=== PATIENT | male | born 1990 | race African-American/Black ===

== ENCOUNTER 2020-07-06 09:06 | Emergency (ER) | payer OTHER, SELFPAY ==
[2020-07-06 09:15] VITALS: BP 136/93; PULSE 68; RESP 17; TEMP 36.3; O2SAT 100
--- NOTE | 2020-07-06 09:19 | PC.NURSE ---
Call for help called at this time.
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
[2020-07-06] MEDS: AZITHROMYCIN 250 MG TABLET 1000 MG PO (11:54)
[2020-07-06] MEDS: EMTRICITABINE-TENOFOVIR 100 MG-150 MG TABLET 2 TAB PO (11:54)
[2020-07-06] MEDS: cefTRIAXone 250 MG VIAL IM (11:54)
[2020-07-06] MEDS: RALTEGRAVIR 400 MG TABLET PO (11:54)
[2020-07-06] MEDS: metroNIDAZOLE 250 MG TABLET 2000 MG PO (11:54)
[2020-07-06 12:06] VITALS: BP 123/78; PULSE 63; RESP 17; O2SAT 100
[2020-07-06 12:09] LABS: HIV 1/2 Ab P24 Ag Result Negative (Negative)
== END 2020-07-06 12:08 | disposition home or self-care (01) ==
PROVIDERS: Emergency Provider Emergency Medicine; PCP Family Medicine Adolescent Medicine
DX: T76.21XA Adult sexual abuse, suspected, initial encounter (principal)
CPT/HCPCS: 36415; 86703; 96372; 99285; A9270; G0432; J0696

== ENCOUNTER 2022-07-27 14:33 | Emergency (ER) | payer SELFPAY ==
[2022-07-27 14:41] VITALS: BP 124/79; PULSE 75; RESP 16; TEMP 36.9; O2SAT 100
--- NOTE | 2022-07-27 14:45 | ED.NAVMDI ---
HPI - Nausea/Vomiting/Diarrhea General Chief complaint: Nausea/Vomiting/Diarrhea Stated complaint: vomiting and diarrhea every morning Time Seen by Provider: 07/27/22 14:47 Source: patient and RN notes reviewed Mode of arrival: ambulatory Limitations: no limitations History of Present Illness HPI Narrative: 31-year-old male presented for complaint of diarrhea since yesterday. He endorses 5 episodes yesterday and 3 episodes today. He denies hematochezia or melena. He endorses chronic vomiting every morning for several years. He is scheduled with his PCP on 08/04/2022, and plans to discuss this. He currently denies abdominal pain, nausea, hematemesis, fevers or chills. He smokes marijuana daily, he states he is cut down on his alcohol intake. Related Data Allergies Allergy/AdvReac Type Severity Reaction Status Date / Time No Known Allergies Allergy Unknown Verified 07/27/22 14:48 Review of Systems Review of Systems: CONSTITUTIONAL: Denies body aches, fever, chills ENT: Denies rhinorrhea, congestion CARDIOVASCULAR: Denies chest pain, palpitations, or edema. RESPIRATORY: Denies cough or dyspnea. GASTROINTESTINAL: Endorses nausea, vomiting, diarrhea. Denies abdominal pain hematochezia, melena, hematemesis GENITOURINARY: Denies dysuria, hematuria, or CVA tenderness. SKIN: Denies rash, itching, or wounds. MUSCULOSKELETAL: Denies back pain, joint pain, or myalgia. NEUROLOGIC: Denies headache, numbness, tingling, or weakness. All systems reviewed & are unremarkable except as noted in HPI and below PMFSH Past Medical History Medical History Healthy adult male Surgical History Surgical History No history of previous surgery Social History Social History Alcohol intake: current Substance use type: marijuana Gender identity (if verbalized by the patient): Male Comments At time of signature, I have reviewed and agree with nursing past medical, surgical, social and family history unless otherwise noted. Please see nursing chart for further information. There is no relevant family history pertinent to the presenting complaint Exam Narrative: GENERAL: Well-appearing, and in no acute distress. EYES: EOMI. Conjunctivae normal. ENT: Mucous membranes pink and moist. CHEST: Clear to auscultation. HEART: Regular rate and rhythm. No murmur appreciated. Normal peripheral pulses. ABDOMEN: abd soft, nondistended, normal active bowel sounds. Tender to epigastric area. SKIN: Warm, dry, no rash. Capillary refill normal. Normal skin turgor. NEURO: Alert and oriented x3. PSYCH: Normal affect. Course Course Emergency Course: Patient is aware of diagnosis, understands and agrees to treatment plan. Anticipatory guidance given. Patient agrees to follow-up as directed and is aware of reasons to seek care at the emergency department. Portions of this record may have been created with voice recognition software Level of Care: Express Care Visit Vital Signs Vital signs: Vital Signs Temperature 98.4 F 07/27/22 14:41 Pulse Rate 75 07/27/22 14:41 Respiratory Rate 16 07/27/22 14:41 Blood Pressure 124/79 07/27/22 14:41 Pulse Oximetry 100 07/27/22 14:41 Oxygen Delivery Room Air 07/27/22 14:41 Temperature 98.4 F 07/27/22 14:41 Pulse Rate 75 07/27/22 14:41 Respiratory Rate 16 07/27/22 14:41 Blood Pressure 124/79 07/27/22 14:41 Pulse Oximetry 100 07/27/22 14:41 Oxygen Delivery Room Air 07/27/22 14:41 MDM - Nausea/Vomiting/Diarrhea MDM Narrative Medical decision making narrative: Patient is scheduled with PCP in one week to discuss chronic vomiting. He is well appearing. Advised supportive measures and signs/symptoms to go to the ER. Pt is appropriate for outpt treatment and f/u. Differential Diagnosis Differ
== END 2022-07-27 15:12 | disposition home or self-care (01) ==
PROVIDERS: Emergency Provider Nurse Practitioner Family; PCP Family Medicine Adolescent Medicine
DX: R11.10 Vomiting, unspecified (principal); R19.7 Diarrhea, unspecified
CPT/HCPCS: 99213; G0463

== ENCOUNTER 2022-08-30 13:21 | Emergency (ER) | payer SELFPAY ==
[2022-08-30 13:33] VITALS: BP 143/79; PULSE 85; RESP 20; TEMP 37.2; O2SAT 99
--- NOTE | 2022-08-30 13:56 | ECG_ITS ---
Measurements Intervals [place] Rate: 64 P: 50 [place]: 127 QRS: 64 QRSD: 93 T: 49 QT: 392 QTc: 407 Interpretive Statements SINUS RHYTHM BASELINE ARTIFACT- V2 NORMAL ECG NO PREVIOUS ECG AVAILABLE FOR COMPARISON Electronically Signed On 08-30-2022 14:16:10 TAPPET ADJUSTER by Edmundo Chang D.O.
[2022-08-30 14:19] LABS: Basophils Percent Auto 0.2 % (0.2-1.2); Eosinophils Percent Auto 0.1 % (0-4.4); Hematocrit 45.3 % (42.0-52.0); Hemoglobin 15.4 g/dL (14.0-18.0); Immature Granulocyte Absolute 0.04 K/mm3 (0.00-0.031); Immature Granulocyte Percent A 0.3 % (0-0.5); Lymphocytes Absolute Auto 1.71 K/mm3 (0.9-3.2); Lymphocytes Percent Auto 13.1 % (18.3-44.2); Mean Corpuscular Hemoglobin 31.4 pg (26-34); Mean Corpuscular Volume 92.4 fl (80-100); Mean Platelet Volume 9.2 fl (7.4-10.4); Monocytes Absolute Auto 1.2 K/mm3 (0.1-0.6); Monocytes Percent Auto 9.5 % (2.6-8.5); Neutrophils Percent Auto 76.8 % (45.5-73.1); Platelet Count Result 261 k/mm3 (150-375); Red Cell Distribution Width 13.3 % (11.5-14.5)
[2022-08-30 14:25] LABS: Appearance Urine Clear (Clear); Bilirubin Urine Negative (Negative); Blood Urine Negative (Negative); Color Urine Yellow (Yellow); Glucose Urine UA Negative (Negative); Ketones Urine Negative (Negative); Leukocyte Esterase Ur Negative LEU/UL (Negative); Nitrate Urine Negative (Negative); Protein Urine Negative (Negative); Specific Grav Ur <= 1.005 (1.001-1.035); Urobilinogen Urine 0.2 mg/dL (<2.0); pH Urine 6.5 (5.0-9.0)
[2022-08-30 14:30] LABS: Alanine Aminotransferase 26 U/L (6-50); Albumin Level 5.1 g/dL (3.5-5.1); Alkaline Phosphatase 96 U/L (38-126); Anion Gap 16 mmol/L (8-16); Aspartate Amino Transferase 45 U/L (17-59); Bilirubin,Total 0.7 mg/dL (0.2-1.3); Blood Urea Nitrogen 6 mg/dL (9-20); Calcium 9.9 mg/dL (8.4-10.2); Carbon Dioxide 25 mmol/L (22-30); Chloride 102 mmol/L (98-107); Estimated CRCL calculation 122 ml/min; Estimated Glomerular Filt Rate > 60; Glucose 119 mg/dL (65-110); Potassium 3.4 mmol/L (3.4-5.0); Sodium 143 mmol/L (137-145)
[2022-08-30 14:31] LABS: Acetaminophen < 10 ug/mL (10-30); Ethanol < 10 mg/dL (<10); INR 1.1; Mucus Urine Rare /lpf; Prothrombin Time 13.3 Seconds (11.1-14.7); RBC Urine 0-2 /hpf (0-2); Salicylate < 1.0 mg/dL (2-20); WBC Urine 0-3 /hpf
[2022-08-30 14:40] LABS: Amphetamine Screen Urine Positive (Negative); Barbiturate Screen Urine Negative (Negative); Benzodiazepines Screen Urine Negative (Negative); Cannabinoid Screen Urine Positive (Negative); Cocaine Screen Urine Negative (Negative); Methadone Screen Urine Negative (Negative); Opiate Screen Urine Negative (Negative); Phencyclidine Screen Urine Negative (Negative)
[2022-08-30 14:48] LABS: Add Urine Microscopic? YES
[2022-08-30 14:54] LABS: SARS-CoV-2 RNA PCR Negative
[2022-08-30] MEDS: PROCHLORPERAZINE EDISYLATE 10 MG/2 ML VIAL 5 MG IM (14:56)
--- NOTE | 2022-08-30 15:55 | PC.NURSE ---
patient was told that he was positive for meth. he became very upset and started crying. denies willingly taking anything. at this time, he reports numbess to his left arm/hand. SO at bedside. aware of patient's complaint. Staff sitter at bedside.
--- NOTE | 2022-08-30 16:49 | ED.GENADULT ---
HPI - General Adult General Chief complaint: Overdose <Gideon Osman MD - Last Filed: 08/30/22 16:54> Stated complaint: possible overdose <Gideon Osman MD - Last Filed: 08/30/22 16:54> Time Seen by Provider: 08/30/22 13:56 <Gideon Osman MD - Last Filed: 08/30/22 16:54> Source: patient <Gideon Osman MD - Last Filed: 08/30/22 16:54> Mode of arrival: ambulatory <Gideon Osman MD - Last Filed: 08/30/22 16:54> Limitations: no limitations <Gideon Osman MD - Last Filed: 08/30/22 16:54> History of Present Illness HPI narrative: 31-year-old with no major medical problems here with complaints of feeling depressed and suicidal. Patient states that he smoked weed and he thinks it was laced with some unknown chemical. He denies any alcohol use. He states that he is not under any kind of stress at this time. He has not been admitted to any psychiatric hospitals in the past. <Gideon Osman MD - Last Filed: 08/30/22 16:54> Onset (ago): day(s) (1) <Gideon Osman MD - Last Filed: 08/30/22 16:54> Associated symptoms: denies other symptoms <Gideon Osman MD - Last Filed: 08/30/22 16:54> Related Data Home medications: Home Medications Medication Instructions Recorded Confirmed No Home Medications 08/30/22 08/30/22 <Gideon Osman MD - Last Filed: 08/30/22 16:54> Allergies/adverse reactions: Allergies Allergy/AdvReac Type Severity Reaction Status Date / Time No Known Allergies Allergy Verified 08/30/22 14:00 <Gideon Osman MD - Last Filed: 08/30/22 16:54> Review of Systems Review of Systems: All systems reviewed & are unremarkable except as noted in HPI and below <Gideon Osman MD - Last Filed: 08/30/22 16:54> Constitutional: Constitutional: Reports no additional constitutional complaints <MD Pamela Loza Last Filed: 08/30/22 16:54> Eyes: Eyes: Reports no additional eye complaints <Gideon Osman MD - Last Filed: 08/30/22 16:54> ENT: Reports system reviewed and no additional complaints, except as documented <Gideon Osman MD - Last Filed: 08/30/22 16:54> Cardiovascular: Cardiovascular: Reports no additional cardiovascular complaints <Gideon Osman MD - Last Filed: 08/30/22 16:54> Respiratory: Respiratory: Reports no additional respiratory complaints <Gideon Osman MD - Last Filed: 08/30/22 16:54> Gastrointestinal: Gastrointestinal: Reports no additional gastrointestinal complaints <Gideon Osman MD - Last Filed: 08/30/22 16:54> Musculoskeletal: Musculoskeletal: Reports no additional musculoskeletal complaints <Gideon Osman MD - Last Filed: 08/30/22 16:54> Integumentary/Breasts: Skin/Breast: Reports system reviewed and no additional complaints, except as docu <Gideon Osman MD - Last Filed: 08/30/22 16:54> Neurologic: Reports system reviewed and no additional complaints, except as documented <Gideon Osman MD - Last Filed: 08/30/22 16:54> Psychiatric: Psychiatric: Reports no additional psychiatric complaints <Gideon Osman MD - Last Filed: 08/30/22 16:54> PMFSH Social History Social History: Social History Substance use type: marijuana <Gideon Osman MD - Last Filed: 08/30/22 16:54> Exam Narrative: GENERAL: Well-appearing, well-nourished, and in no acute distress. HEAD: Normocephalic, atraumatic. EYES: PERRLA and EOMI. NECK: Supple. CHEST: Clear to auscultation. No respiratory distress. HEART: Regular rate and rhythm. No murmur heard. Normal peripheral pulses. ABDOMEN: Soft, nontender, nondistended, normal active bowel sounds. EXTREMITIES: Normal range of motion. No edema. SKIN: Warm, dry, no rash. NEURO: No focal deficits. Alert and oriented x3. PSYCH: Normal mood and affect. <Gideon Osman MD - Last Filed: 08/30/22 16:54> Course Course Emergency Course: Patient comfortably resting on the bed in no disc
[2022-08-30] MEDS: ACETAMINOPHEN 500 MG TABLET 1000 MG PO (18:34)
[2022-08-30] MEDS: LORazepam (*CRX) 1 MG TABLET PO (20:21)
[2022-08-30] MEDS: ONDANSETRON HCL ODT 4 MG TABLET PO (21:28)
[2022-08-31] MEDS: QUEtiapine FUMARATE 25 MG TABLET 50 MG PO (05:47)
[2022-08-31 07:07] VITALS: RESP 20
[2022-08-31 09:00] VITALS: BP 140/68; PULSE 68; RESP 16; O2SAT 98
--- NOTE | 2022-08-31 11:28 | PC.NURSE ---
[id number] Faxed file to intake at [facility], [place] and [place].[employer]ava US/tech
[2022-08-31 15:07] VITALS: BP 125/68; PULSE 68; RESP 14; TEMP 36.6; O2SAT 98
[2022-08-31] MEDS: LORazepam (*CRX) 1 MG TABLET 2 MG PO (15:11)
== END 2022-08-31 19:00 ==
PROVIDERS: Family Medicine; Emergency Provider Emergency Medicine
DX: R45.851 Suicidal ideations (principal); F19.10 Other psychoactive substance abuse, uncomplicated; Z20.822 Contact with and (suspected) exposure to COVID-19
CPT/HCPCS: 36415; 80053; 80307; 81001; 84443; 85025; 85610; 93005; 96372; 99285; A9270; J0780; U0003; U0005

== ENCOUNTER 2023-05-26 14:54 | Emergency (ER) | payer OTHER, SELFPAY ==
--- NOTE | ~2023-05-26 | XR_ITS ---
EXAMINATION: XR lumbar spine 2-3V DATE: 05/26/2023 18:10 INDICATION: Chronic back pain TECHNIQUE: Anteroposterior and lateral views of the lumbar spine, and cone-down lateral view of the l umbosacral junction were obtained. COMPARISON: 02/08/2013 FINDINGS: There are 3 mm of retrolisthesis of L5 on S1. There is no fracture. The vertebral body heig hts and intervertebral disc spaces are normal. There is moderate facet joint osteoarthritis at L5-S1. IMPRESSION: 1. Mild lumbar spondylosis without acute findings. Reviewed, dictated and finalized at location F.
[2023-05-26 15:28] VITALS: BP 139/69; PULSE 66; RESP 14; TEMP 36.6; O2SAT 100
[2023-05-26 16:14] VITALS: BP 116/80; PULSE 70; RESP 16; TEMP 37; O2SAT 100
[2023-05-26] MEDS: KETOROLAC (*BKC) 60 MG/2 ML VIAL IM (17:26)
[2023-05-26 17:39] LABS: Appearance Urine Clear (Clear); Bilirubin Urine Negative (Negative); Blood Urine Negative (Negative); Color Urine Yellow (Yellow); Glucose Urine UA Negative (Negative); Ketones Urine Negative (Negative); Leukocyte Esterase Ur Negative LEU/UL (Negative); Nitrate Urine Negative (Negative); Protein Urine Negative (Negative); Specific Grav Ur 1.006 (1.001-1.035); Urobilinogen Urine 0.2 mg/dL (<2.0); pH Urine 6.5 (5.0-9.0)
--- NOTE | 2023-05-26 17:46 | ED.BACK ---
HPI - Back Pain/Injury General Chief Complaint: Back Pain/Injury Stated Complaint: back pain Time Seen by Provider: 05/26/23 16:53 Source: patient and RN notes reviewed Mode of arrival: ambulatory Limitations: no limitations History of Present Illness HPI Narrative: THis is a 32 year old male who presents for evaluation of back pain. Patient states he has been dealing with back pain intermittently for years. He states this bout of pain for 2 weeks. His pain is located right lower back that is worse with movement. He reports has some pain in his right groin as well. He has not been taking anything for his pain. He denies associated fever, chills, nausea, vomiting or testicular pain. He denies dysuria. He went to urgent care for evaluation and he was sent to ER Related Data Allergies Allergy/AdvReac Type Severity Reaction Status Date / Time No Known Allergies Allergy Verified 05/26/23 17:26 Review of Systems Constitutional: Constitutional: Denies weakness Cardiovascular: Cardiovascular: Denies syncope, Denies rapid heart rate, Denies irregular heart rhythm, Denies leg edema and Denies dyspnea Respiratory: Respiratory: Denies chest congestion, Denies hemoptysis, Denies excessive phlegm production and Denies dyspnea Gastrointestinal: Gastrointestinal: Denies abdominal pain, Denies hematochezia, Denies diarrhea and Denies vomiting Genitourinary: Genitourinary: Denies hematuria, Denies dysuria, Denies penile discharge and Denies testicular pain Musculoskeletal: Musculoskeletal: Reports back pain, Denies joint swelling, Denies loss of height and Denies muscle weakness Neurologic: Denies syncope, Denies focal weakness and Denies weakness PMFSH Past Medical History Medical History Healthy adult male Surgical History Surgical History No history of previous surgery Social History Social History Smoking status: Former smoker Tobacco type: e-cigarettes/vaping Alcohol intake: current Substance use: current Substance use type: marijuana Living arrangements: with family Gender identity (if verbalized by the patient): Male Spiritual care concerns: No Exam Const: General: no acute distress and alert Nutritional Appearance: well nourished Orientation/consciousness: patient oriented x3 HENMT: Throat: posterior oropharynx normal and uvula midline Eyes: EOM: EOMs intact bilaterally Chest: Chest palpation & inspection: normal inspection of the chest Resp: Effort & Inspection: normal respiratory effort Auscultation: clear to auscultation bilaterally Cardio: Rate: regular rate Rhythm: regular rhythm Heart sounds: no murmurs GI: GI Palp: Yes Soft to palpation, No Tenderness to palpation present (GI), No Guarding due to palpation present (GI) and No Rigid due to palpation Auscultation: normal bowel sounds Back/Spine/Pelvis: Back: no CVA tenderness Cervical Spine: cervical ROM normal Thoracic/Lumbar Spine: paraspinal muscle tenderness on the right in the lower lumbar Skin: General skin exam: normal color Neuro: General: patient oriented x3, moves all extremities and CN's II-XI intact bilaterally Psych: Mental Status: mental status grossly normal Affect: normal affect Attitude: cooperative Course Reevaluation(s) Reevaluation #1: I discussed with patient xray results and UA is unremarkable. I stressed to patient that he will need to follow up with PCP for continued evaluation of his pain. No leg weakness, numbness tingling, saddle anesthesia. unlikely kidney stone. Date: 05/26/23 Time: 18:42 Vital Signs Vital signs: Vital Signs Temperature 97.8 F 05/26/23 15:28 Pulse Rate 66 05/26/23 15:28 Respiratory Rate 14 05/26/23 15:28 Blood Pressure 139/69 05/26/23 15:28 Pulse Oximetry 100 05/26/23 15:28 Oxygen Delivery
[2023-05-26 17:53] LABS: Add Urine Microscopic? NO
== END 2023-05-26 18:55 | disposition home or self-care (01) ==
PROVIDERS: Emergency Provider General Practice; PCP Family Medicine Adolescent Medicine
DX: M54.50 Low back pain, unspecified (principal); F17.290 Nicotine dependence, other tobacco product, uncomplicated
CPT/HCPCS: 72100; 81003; 96372; 99283; J1885

== ENCOUNTER 2023-09-19 21:28 | Emergency (ER) | payer OTHER, SELFPAY ==
--- NOTE | ~2023-09-19 | XR_ITS ---
Lumbosacral Spine: AP and lateral views Clinical History: Pain Findings: The normal lordotic curve is maintained. The vertebral bodies and posterior elements are i ntact. The intervertebral disc spaces are preserved. The sacroiliac joints are normally outlined. Impression: No significant abnormality. Reviewed, dictated and finalized at [facility]. M SHOVEL ENGINEER Impression: No significant abnormality.
--- NOTE | ~2023-09-19 | XR_ITS ---
Thoracic spine: Clinical Indication: Back pain AP and lateral views were performed. No fracture is seen. There is normal alignment of the vertebrae. The intervertebral disc spaces appe ar normal. Paravertebral soft tissues appear normal. Impression: No significant abnormalities noted. Reviewed, dictated and finalized at [place] [facility]. ED FRAMES ASSEMBLER Impression: No significant abnormalities noted.
--- NOTE | ~2023-09-19 | CT_ITS ---
Non-contrast Head CT History: Head injury Technique: Axial non-contrast imaging of the brain was performed. Dose reduction technique was used on this scan by utilizing automated exposure control and iterative reconstruction technique. The dose -length product (DLP) was 605.33 mGy-cm. Findings: There is no evidence of intracranial hemorrhage, mass lesion, or acute infarct. There is a n area chronic encephalomalacia in the right frontal lobe. The ventricles and subarachnoid spaces are normal in size. The calvarium appears normal. The visualized paranasal sinuses and mastoid air pedro ls are clear. Impression: No acute abnormality. Area of chronic encephalomalacia in the right frontal lobe. Correlate with any relevant clinical hist ory. Reviewed, dictated and finalized at [facility]. NT SERVICES ADMINISTRATOR Impression: No acute abnormality. Area of chronic encephalomalacia in the right frontal lobe. Correlate with any relevant clinical history.
--- NOTE | ~2023-09-19 | CT_ITS ---
Noncontrast CT scan of the cervical spine Technique: Multiple contiguous axial [address] images of the cervical spine were obtained and rec onstructed in 2D sagittal and coronal planes on the acquisition scanner. Dose reduction technique was used on this scan by utilizing automated exposure control, adjustment of the mA and/or kV according to patient size. The dose-length product (DLP) was 562.44 mGy-cm. Clinical History: Pain Findings: No fractures or dislocations. Unremarkable visualized bony structures. The intervertebral disc spaces are preserved. No prevertebral soft tissue swelling. Impression: No fracture or subluxation of the cervical spine. Reviewed, dictated and finalized at location . ONAL ASSISTANT Impression: No fracture or subluxation of the cervical spine.
[2023-09-19 21:38] VITALS: BP 143/79; PULSE 90; RESP 20; TEMP 36; O2SAT 99
[2023-09-19 23:57] VITALS: BP 140/69; PULSE 69; RESP 18; O2SAT 100
[2023-09-20 03:40] VITALS: BP 120/82; PULSE 53; RESP 20; O2SAT 100
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
[2023-09-20 07:07] VITALS: BP 126/85; PULSE 62; RESP 20; O2SAT 100
== END 2023-09-20 07:09 | disposition home or self-care (01) ==
PROVIDERS: Emergency Provider Emergency Medicine; PCP Family Medicine Adolescent Medicine
DX: S16.1XXA Strain of muscle, fascia and tendon at neck level, initial encounter (principal); S39.92XA Unspecified injury of lower back, initial encounter; S29.9XXA Unspecified injury of thorax, initial encounter; Z87.891 Personal history of nicotine dependence; V49.00XA Driver injured in collision with unspecified motor vehicles in nontraffic accident, initial encounter
CPT/HCPCS: 70450; 72070; 72100; 72125; 99284

== ENCOUNTER 2024-04-07 13:43 | Observation (INO) | payer OTHER, SELFPAY ==
[2024-04-07] VITALS (13 sets, daily range): BP systolic 106–128; BP diastolic 72–88; PULSE 80–93; RESP 17–18; TEMP 36.4; O2SAT 98–100; BMI 25.4
--- NOTE | ~2024-04-07 | CT_ITS ---
CT brain wo con Ordering provider: Addie Leos PA-C History: 33 years Male with . seizure vs syncope . Comparison: September 20, 2023 Technique: CT of the head without contrast. Radiation reduction technique utilized. DLP is 605.33 mGy FINDINGS: BRAIN PARENCHYMA AND CSF SPACES: Small hyperdense areas seen in the right frontal lobe which may be c alcification unchanged from previous examination. Adjacent encephalomalacia seen.. No midline shift, mass effect or hemorrhage. The brain parenchyma and CSF spaces are otherwise normal. VISUALIZED PARANASAL SINUSES: Well aerated. MASTOIDS: Well aerated. BONES: The bones appear intact. SOFT TISSUES: Visualized nasopharynx is normal. Superficial soft tissues are normal. IMPRESSION: No acute intracranial findings. Area of encephalomalacia in the right frontal lobe with adjacent calcification unchanged from previou s examination. Reviewed, dictated and finalized at location A. IMPRESSION: No acute intracranial findings. Area of encephalomalacia in the right frontal lobe with adjacent calcification unchanged from previous examination.
--- NOTE | ~2024-04-07 | MR_ITS ---
EXAMINATION: MR brain/brain stem wo/w con DATE: 04/08/2024 11:10 INDICATION: Seizure TECHNIQUE: Magnetic resonance imaging (MRI) of the brain and brainstem was performed without and with 14 mL Multihance intravenous contrast. Sequences included sagittal and axial T1-weighted SE, axial d iffusion-weighted FS SE, axial T2*-weighted GRE, axial T2-weighted FLAIR, and axial T2-weighted FSE. Postcontrast axial and coronal T1-weighted SE was obtained. Apparent diffusion coefficient (ADC) maps were created. COMPARISON: CT dated 04/07/2024 and 09/20/2023 FINDINGS: Small region of chronic encephalomalacia in the right frontal lobe. There is somewhat serpiginous pat tern of low signal with susceptibility artifact along the margin of the encephalomalacia which sugges ts the presence of chronic blood products. There are no areas of restricted diffusion to suggest acut e infarction. No abnormal intracranial mass lesion or abnormally enhancing brain lesions. There are n o intraparenchymal signal abnormalities seen on the other pulse sequences. The ventricles are symmetr ic and normal in size. Normal symmetric bilateral hippocampi. No benitez matter heterotopias or other ne uronal migrational abnormalities appreciated. There are no abnormal extra-axial fluid collections. Fl ow voids are seen in the cerebral arteries on the T2-weighted sequences consistent with their expecte d patency. Mild mucosal thickening the bilateral ethmoid sinuses. Visualized orbits and soft tissues are unremarkable. IMPRESSION: 1. Curvilinear susceptibility artifact suggestive of sequela of chronic hemorrhage along the margins of a small region of encephalomalacia likely related to reported history of stroke 2 years prior. No acute intracranial process. Reviewed, dictated and finalized at location A. IMPRESSION: 1. Curvilinear susceptibility artifact suggestive of sequela of chronic hemorrh age along the margins of a small region of encephalomalacia likely related to r eported history of stroke 2 years prior. No acute intracranial process.
--- NOTE | ~2024-04-07 | XR_ITS ---
XR chest 2V Ordering provider: Addie Leos PA-C History: 33 years Male with . syncope . Comparison: May 09, 2018 FINDINGS: MEDIASTINUM: The cardiac silhouette is not enlarged. LUNGS: No infiltrates, effusions or pneumothorax. OTHER: No free air under the diaphragm. IMPRESSION: No acute cardiopulmonary pathology. Reviewed, dictated and finalized at location A.
[2024-04-07 14:02] LABS: Glucose Point of Care 311 mg/dl (65-105)
--- NOTE | 2024-04-07 14:02 | ECG_ITS ---
Test Date: 2024-04-07 14:11:28 Measurements Intervals [place] Rate: 81 P: 52 [place]: 149 QRS: 75 QRSD: 97 T: 50 QT: 356 QTc: 414 Interpretive Statements SINUS RHYTHM No previous ECG available for comparison Electronically Signed On 04-08-2024 12:56:09 CDT by Kaden Pizano M.D.
[2024-04-07 14:53] LABS: Basophils Percent Auto 0.3 % (0.2-1.2); Eosinophils Absolute Auto 0.3 K/mm3 (0-0.3); Eosinophils Percent Auto 3.8 % (0-4.4); Hematocrit 42.7 % (42.0-52.0); Immature Granulocyte Absolute 0.02 K/mm3 (0.00-0.031); Immature Granulocyte Percent A 0.2 % (0-0.5); Lymphocytes Absolute Auto 1.83 K/mm3 (0.9-3.2); Lymphocytes Percent Auto 20.4 % (18.3-44.2); Mean Corpuscular HGB Conc 35.1 g/dl (32-36); Mean Corpuscular Hemoglobin 31.5 pg (26-34); Mean Corpuscular Volume 89.7 fl (80-100); Mean Platelet Volume 9.2 fl (7.4-10.4); Monocytes Absolute Auto 0.9 K/mm3 (0.1-0.6); Monocytes Percent Auto 9.9 % (2.6-8.5); Neutrophils Absolute Auto 5.9 K/mm3 (1.3-6.7); Neutrophils Percent Auto 65.4 % (45.5-73.1); Platelet Count Result 265 k/mm3 (150-375); Red Blood Count 4.76 M/mm3 (4.6-6.20)
[2024-04-07 15:02] LABS: Alanine Aminotransferase 19 U/L (6-50); Albumin Level 4.4 g/dL (3.5-5.1); Alkaline Phosphatase 87 U/L (38-126); Anion Gap 8 mmol/L (4-12); Aspartate Amino Transferase 35 U/L (17-59); Bilirubin,Total 0.6 mg/dL (0.2-1.3); Blood Urea Nitrogen 11 mg/dL (9-20); Calcium 9.3 mg/dL (8.4-10.2); Carbon Dioxide 25 mmol/L (22-30); Chloride 108 mmol/L (98-107); Estimated CRCL calculation 94 ml/min; Estimated Glomerular Filt Rate > 60; Glucose 73 mg/dL (65-110); Magnesium 2.3 mg/dL (1.6-2.3); Potassium 4.2 mmol/L (3.4-5.0); Sodium 141 mmol/L (137-145)
--- NOTE | 2024-04-07 15:02 | ED.SEIZURE ---
HPI - Seizure General Chief Complaint: Syncope <Addie Leos PA-C - Last Filed: 04/07/24 21:07> Stated Complaint: SYNCOPY <Addie Leos PA-C - Last Filed: 04/07/24 21:07> Time Seen by Provider: 04/07/24 14:08 <Addie Leos PA-C - Last Filed: 04/07/24 21:07> Source: patient <OCTAVIANO Dean Last Filed: 04/07/24 21:07> Mode of arrival: EMS <OCTAVIANO Dean Last Filed: 04/07/24 21:07> Limitations: no limitations <OCTAVIANO Dean Last Filed: 04/07/24 21:07> History of Present Illness HPI Narrative: This is a 33-year-old male that presents to the emergency department after a possible seizure today. Reports he was getting ready for a wedding and started to feel his left hand shaking. He then fell to the ground and experienced full body shaking. He thinks this lasted for a couple minutes. He bit his tongue during the episode. Reports history of hemorrhagic stroke 2 years ago. He did experience seizures at that time, but has not had any recently. He is not on any seizure medications at this time. He does not currently have a neurologist. He also reports he has been drinking quite a bit over the last couple of months. His last drink was around 1 this morning. Reports he has had shakes due to withdrawals, but has not ever had a withdrawal seizure. Denies vision changes, vomiting, focal numbness or weakness. <Addie Leos PA-C - Last Filed: 04/07/24 21:07> Seizure History: Yes (08/2022) <OCTAVIANO Dean Last Filed: 04/07/24 21:07> Related Data Home Medications: Home Medications Medication Instructions Recorded Confirmed No Home Medications 04/08/24 04/08/24 <OCTAVIANO Dean Last Filed: 04/07/24 21:07> Allergies/Adverse Reactions: Allergies Allergy/AdvReac Type Severity Reaction Status Date / Time No Known Allergies Allergy Verified 04/07/24 22:45 <Addie Leos PA-C - Last Filed: 04/07/24 21:07> Review of Systems Review of Systems: CONSTITUTIONAL: Denies fever EYES: Denies visual changes GASTROINTESTINAL: Denies vomiting NEUROLOGIC: Denies headache, numbness, or weakness. <Addie Leos PA-C - Last Filed: 04/07/24 21:07> All systems reviewed & are unremarkable except as noted in HPI and below <Addie Leos PA-C - Last Filed: 04/07/24 21:07> PMFSH Past Medical History Medical History: Medical History (Updated 04/07/24 @ 21:05 by Addie Leos PA-C) History of hemorrhagic cerebrovascular accident (CVA) without residual deficits 08/2022 <Addie Leos PA-C - Last Filed: 04/07/24 21:07> Surgical History Surgical History: Surgical History No history of previous surgery <Addie Leos PA-C - Last Filed: 04/07/24 21:07> Social History Social History: Social History Smoking status: Current every day smoker Tobacco type: smokeless tobacco Smokeless tobacco user: chewing tobacco Second hand tobacco smoke exposure: No Alcohol intake: current Drinks per week: 12 Substance use: current Substance use type: marijuana Other substance usage details: former amphetamine user Last use: 02/11/2024 Do You Feel Safe in your Home?: Yes Lack of Transportation: No Lack of Food: Never True Current Housing: I Have Housing Concerned About Future Housing: No Difficulty Paying Gas/Electric Bills: No Difficulty Paying for Meds: No Currently Unemployed: No Education: High School Diploma/GED Difficulty w/ Childcare or Family Care: No Living arrangements: with family Gender identity (if verbalized by the patient): Male Spiritual care concerns: No <Addie Leos PA-C - Last Filed: 04/07/24 21:07> Exam Narrative: GENERAL: Well-appearing, well-nourished, and in no acute distress. HEAD: Normocephalic
[2024-04-07 15:14] LABS: Troponin I < 0.012 ng/mL (0.000-0.034)
[2024-04-07] MEDS: levETIRAcetam 1000MG/NACL100ML 1,000 MG/100 ML BAG 400 MG IVPB (15:16)
[2024-04-07] MEDS: SILVER SULFADIAZINE 1% CR 50 GM JAR (*BKC) 1 APPLIC TOPICAL (16:09)
[2024-04-07 16:12] LABS: Ethanol < 10 mg/dL (<10)
[2024-04-07 17:12] LABS: Appearance Urine Clear (Clear); Bacteria Urine None Seen /hpf; Bilirubin Urine Negative (Negative); Blood Urine Negative (Negative); Color Urine Yellow (Yellow); Glucose Urine UA 1+ mg/dL (Negative); Ketones Urine Negative (Negative); Leukocyte Esterase Ur Negative LEU/UL (Negative); Nitrate Urine Negative (Negative); Non Pathogenic Casts 0-2; Protein Urine 1+ mg/dL (Negative); RBC Urine 0-2 /hpf (0-2); Specific Grav Ur 1.018 (1.001-1.035); Squamous Epithelial Cell Urine None Seen /hpf (Few); Urobilinogen Urine 0.2 mg/dL (<2.0); WBC Urine 0-5 /hpf (0-3)
[2024-04-07 17:15] LABS: Add Urine Microscopic? YES
[2024-04-07 17:23] LABS: Amphetamine Screen Urine Negative (Negative); Barbiturate Screen Urine Negative (Negative); Benzodiazepines Screen Urine Negative (Negative); Cannabinoid Screen Urine Positive (Negative); Cocaine Screen Urine Negative (Negative); Methadone Screen Urine Negative (Negative); Opiate Screen Urine Negative (Negative); Phencyclidine Screen Urine Negative (Negative)
--- NOTE | 2024-04-07 19:51 | PC.NURSE ---
Report received from ARIELA Kennedy. Assumed care of patient at this time.
--- NOTE | 2024-04-07 20:17 | PC.NURSE ---
Patient given water with turkey sandwhich and pretzels upon request. Patient updated on waiting for bed upstairs for admittance to hospital.
--- NOTE | 2024-04-07 20:45 | ADMGEN ---
This patient, Anuj Valentin, was admitted to Medical Room 346-01. Patient/family oriented to hospital policies and general routines including ID bracelet, bed and alarms, visiting hours, pain management, procedures, bathroom and other care routines, personal items, smoking policy, room service/diet, and visiting hours. Information on how to activate the Rapid Response Team has been discussed. Patient/Family are encouraged to report perceived risks to care and to ask questions if they do not understand what they are told or what they should do.
[2024-04-07 22:52] LABS: Glucose Point of Care 142 mg/dl (65-105)
[2024-04-07] MEDS: traZODone HCL 50 MG TABLET PO (23:53)
[2024-04-08] VITALS (9 sets, daily range): BP systolic 109–118; BP diastolic 59–67; PULSE 53–69; RESP 16–20; TEMP 36.1–36.8; O2SAT 98–99
--- NOTE | 2024-04-08 03:14 | PM.IMHP ---
H&P: HPI History of Present Illness Date/Time: 04/08/24 01:15 Chief Complaint: Possible seizure. Narrative: This is a pleasant 33-year-old male with history of hemorrhagic stroke in August 2022 associated with seizure however he has not had any since that time who presented to the emergency department via EMS for evaluation of possible seizure. The patient provides the following history. He felt fine when he got up this morning but a bit tired from activities from the night before. While getting ready for to go to a wedding he started to have tremors of his left hand which progressed up the left arm. He was aware of these tremors but was unable to control them. He then started to feel strange throughout his whole body and reportedly fell onto the ground with full body tremor. When he came to he was a bit confused but was awake and alert quite quickly. There were no reports of bowel or bladder incontinence. He did not sustain any injuries however he did bite his tongue. He does endorses a lot of stress recently. He has not been sleeping well, maybe 5 hours a night. He does admit that he has been drinking daily, 4 to 5 cans of ?crown in a can.? He drinks in the evening times and is able to go to work the following day without any signs of withdrawal. He denies headache, neck ache, fever, cold and flu symptoms, chest pain, pleuritic pain, shortness a breath, nausea, vomiting, and diarrhea. In the ED: Vital signs were stable on arrival. Labs were pretty unremarkable. Urine drug screen was positive for cannabis. Brain CT showed no acute findings but did note area of encephalomalacia in the right frontal lobe which is unchanged from previous exam. Chest x-ray was unremarkable. He was loaded with Keppra and he is being admitted in this setting for close monitoring and neurology consultation. Review of Systems Review of Systems: 12 systems were reviewed and are negative except for as per HPI. [facility] Past Medical History Medical History (Updated 04/08/24 @ 15:35 by Amee Pretty PA-C) Depression with anxiety History of hemorrhagic cerebrovascular accident (CVA) without residual deficits (08/2022) Patient has seizure at that time. Suicide attempt (2021) Surgical History Surgical History No history of previous surgery Social History Social History (Updated 04/08/24 @ 15:36 by Amee Pretty PA-C) Social History: Surrogate medical decision maker: Gladys Valentin, mother. Code status: Full code. 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 Last use: 02/11/2024 Do You Feel Safe in your Home?: Yes Lack of Transportation: No Lack of Food: Never True Current Housing: I Have Housing Concerned About Future Housing: No Difficulty Paying Gas/Electric Bills: No Difficulty Paying for Meds: No Currently Unemployed: No Education: High School Diploma/GED Difficulty w/ Childcare or Family Care: No Living arrangements: with family Spiritual care concerns: No Meds Home Medications and Allergies Home Medications Medication Instructions Recorded Confirmed Type No Home Medications 04/08/24 04/08/24 History Allergies Allergy/AdvReac Type Severity Reaction Status Date / Time No Known Allergies Allergy Verified 04/07/24 22:45 Vital Signs Vital Signs - 24 hr 04/07/24 13:47 04/07/24 13:53 04/07/24 14:01 Temperature 97.5 F L Pulse Rate 93 Respiratory Rate 18 Blood Pressure 128/84 128/84 106/88 Pulse Oximetry 99 100 100 Oxygen Delivery Room Air 04/07/24 14:56 04/07/24 15:00 04/07/24 15:01 Tem
[2024-04-08] MEDS: LIDOCAINE HCL 2% VISC SOLN 15 ML UDC PO ×2 (05:24→22:29)
[2024-04-08 05:54] LABS: Anion Gap 7 mmol/L (4-12); Blood Urea Nitrogen 12 mg/dL (9-20); Calcium 8.8 mg/dL (8.4-10.2); Carbon Dioxide 22 mmol/L (22-30); Chloride 110 mmol/L (98-107); Estimated CRCL calculation 94 ml/min; Estimated Glomerular Filt Rate > 60; Glucose 95 mg/dL (65-110); Potassium 3.7 mmol/L (3.4-5.0); Sodium 139 mmol/L (137-145)
[2024-04-08 08:56] LABS: Glucose Point of Care 83 mg/dl (65-105)
[2024-04-08] MEDS: levETIRAcetam IV 750 MG in DEXTROSE 5% 100 ML 430 MG IVPB ×2 (09:26→22:09)
[2024-04-08] MEDS: PANTOPRAZOLE 40 MG TABLET PO (09:30)
--- NOTE | 2024-04-08 09:42 | WPDNEURCNPN ---
Assessment and Plan Assessment and plan (1) Seizure: Code(s): R56.9 - Unspecified convulsions Status: Acute (2) History of hemorrhagic cerebrovascular accident (CVA) without residual deficits: Code(s): Z86.73 - Personal history of transient ischemic attack (TIA), and cerebral infarction without residual deficits Status: Acute Plan Mr. Valentin is a 33 year old male with a history of hemorrhagic stroke complicated by seizure, not on any anti-seizure medicaiton presenting due to breakthrough seizure. He is at risk for subsequent seizures given the prior stroke and should be maintained on retirement anti-seizure medicaiton. 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 Patient was hetting ready to attend a wedding on 04/07 when he felt his L hand shaking. He then fell to the floor and had full body convulsion. He had tongue biting. He has a history of hemorrhagic stroke about two years ago. He did have seizures around the time of the stroke. He is not currently on any anti-seizure medication and does not see a Neurologist. He does have a history of heavy alcohol use but no prior history of wtidrawal seizures, although it seems that he does have some tremulousness related to withdrawals in the past. CT head showed encephalomalacia in the R frontal lobe. He has been started on Keppra. Review of Systems Review of Systems: All systems reviewed & are unremarkable except as noted in HPI and below PMFSH Past Medical History Medical History Depression with anxiety History of hemorrhagic cerebrovascular accident (CVA) without residual deficits (08/2022) Patient has seizure at that time. Suicide attempt (2021) Surgical History Surgical History No history of previous surgery Social History Social History Social History: Surrogate medical decision maker: Gladys Valentin, mother. Code status: Full code. 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 Last use: 02/11/2024 Do You Feel Safe in your Home?: Yes Lack of Transportation: No Lack of Food: Never True Current Housing: I Have Housing Concerned About Future Housing: No Difficulty Paying Gas/Electric Bills: No Difficulty Paying for Meds: No Currently Unemployed: No Education: High School Diploma/GED Difficulty w/ Childcare or Family Care: No Living arrangements: with family Spiritual care concerns: No Meds Home Medications and Allergies Home Medications Medication Instructions Recorded Confirmed Type No Home Medications 04/08/24 04/08/24 History Allergies Allergy/AdvReac Type Severity Reaction Status Date / Time No Known Allergies Allergy Verified 04/07/24 22:45 Vital Signs Vital Signs - 24 hr 04/07/24 13:47 04/07/24 13:53 04/07/24 14:01 Temperature 36.4 C L Pulse Rate 93 Respiratory Rate 18 Blood Pressure 128/84 128/84 106/88 Pulse Oximetry 99 100 100 Oxygen Delivery Room Air 04/07/24 14:56 04/07/24 15:00 04/07/24 15:01 Temperature Pulse Rate Respiratory Rate Blood Pressure 119/74 120/78 Pulse Oximetry 100 100 100 Oxygen Delivery 04/07/24 15:15 04/07/24 15:31 04/07/24 15:32 Temperature Pulse Rate Respir
[2024-04-08 12:07] LABS: Glucose Point of Care 85 mg/dl (65-105)
--- NOTE | 2024-04-08 13:46 | P.PNCROSS_ITS ---
Event Note Event Note Event Note: Patient had been seen by previous provider same day. Follow-up assessment showed patient in no acute distress, no further seizures reported overnight. Denied any CP, SOB, Dizziness, visual changes, or syncope. MRI showed previous hemorrhagic stroke 2 years ago no acute issue seen. Patient was seen by Neurology who also agree with current treatment plan. Started patient 750 mg Keppra b.i.d., seizure precaution, and then p.r.n. for any seizure activity and EEG scheduled in the morning. Patient very likely will need long-term anti- seizures medications.
[2024-04-08 17:07] LABS: Glucose Point of Care 95 mg/dl (65-105)
[2024-04-08] MEDS: ALPRAZolam (*CRX) 0.25 MG TABLET PO (22:29)
[2024-04-09] VITALS (10 sets, daily range): BP systolic 103–125; BP diastolic 64–69; PULSE 50–73; RESP 18–20; TEMP 35.9–36.3; O2SAT 99–100; BMI 26.5
[2024-04-09 05:30] LABS: Glucose Point of Care 114 mg/dl (65-105)
[2024-04-09 05:53] LABS: Hematocrit 40.5 % (42.0-52.0); Hemoglobin 13.7 g/dL (14.0-18.0); Mean Corpuscular HGB Conc 33.8 g/dl (32-36); Mean Corpuscular Hemoglobin 31.4 pg (26-34); Mean Corpuscular Volume 92.7 fl (80-100); Mean Platelet Volume 9.5 fl (7.4-10.4); Platelet Count Result 227 k/mm3 (150-375); Red Blood Count 4.37 M/mm3 (4.6-6.20); Red Cell Distribution Width 12.7 % (11.5-14.5)
[2024-04-09 06:08] LABS: Alanine Aminotransferase 16 U/L (6-50); Albumin Level 3.6 g/dL (3.5-5.1); Alkaline Phosphatase 74 U/L (38-126); Anion Gap 7 mmol/L (4-12); Aspartate Amino Transferase 31 U/L (17-59); Bilirubin,Total 0.4 mg/dL (0.2-1.3); Blood Urea Nitrogen 12 mg/dL (9-20); Calcium 8.8 mg/dL (8.4-10.2); Carbon Dioxide 26 mmol/L (22-30); Chloride 107 mmol/L (98-107); Estimated CRCL calculation 85 ml/min; Estimated Glomerular Filt Rate > 60; Glucose 96 mg/dL (65-110); Potassium 3.7 mmol/L (3.4-5.0); Sodium 140 mmol/L (137-145)
[2024-04-09] MEDS: levETIRAcetam IV 750 MG in DEXTROSE 5% 100 ML 430 MG IVPB ×2 (08:09→20:57)
[2024-04-09] MEDS: PANTOPRAZOLE 40 MG TABLET PO (08:10)
[2024-04-09 08:30] LABS: Glucose Point of Care 98 mg/dl (65-105)
[2024-04-09 11:44] LABS: Glucose Point of Care 91 mg/dl (65-105)
--- NOTE | 2024-04-09 13:06 | PM.IMPN ---
Progress Note: A&P Assessment and Plan (1) Seizure: Code(s): R56.9 - Unspecified convulsions Status: Acute Assessment and Plan: By his history certainly sounds as though he had a seizure. Alcohol withdrawal seizure seems unlikely as he has been drinking daily for several months and in fact he has been may be drinking a bit more the last few days. He had a single seizure at the time of his hemorrhagic stroke in September 14 and has not had any since that time. Neurology consulted Head CT with no acute intracranial findings. Brain MRI showed curvilinear susceptibility and infarct suggestive of sequela of chronic hemorrhage along the margins of small region of encephalomalacia likely related to reported history of stroke. Keppra 500 mg b.i.d. EEG ordered for today (2) Alcohol abuse: Code(s): F10.10 - Alcohol abuse, uncomplicated Status: Acute Assessment and Plan: Monitor CIWA Ativan 2 mg p.r.n. for CIWA off between 8 and 12 Librium 25 mg p.r.n. for CIWA greater than 12 Thiamine injections daily Subjective Date/time seen: 04/09/24 13:06 Interval history: Patient states that he has increased sleepiness today but otherwise feeling himself. He denies any dizziness, lightheadedness or visual changes. Patient had EEG today with results pending. Patient can be discharged once cleared by Neurology. Exam Narrative: GENERAL: Comfortable, no acute distress HENMT: moist mucous membranes EYES: EOM intact b/l NECK: no lymphadenopathy RESPIRATORY: clear to auscultation, no increased respiratory effort CARDIO: Regular rate and rhythm GI: soft, nontender, bowel sounds present SKIN/EXTREMITIES: no rashes, no edema, no redness or tenderness NEURO: PROM intact, answers questions appropriately, A&O x4 Objective Data Vital Signs Vital Signs: Vital Signs - 24 hr 04/08/24 14:00 04/08/24 16:00 04/08/24 22:00 Temperature 98.2 F 97.1 F L Pulse Rate 60 53 L 63 Respiratory Rate 20 20 Blood Pressure 113/60 118/59 L Pulse Oximetry 99 98 Oxygen Delivery 04/08/24 20:00 04/08/24 20:00 04/09/24 00:00 Temperature Pulse Rate 54 L 64 Respiratory Rate Blood Pressure Pulse Oximetry Oxygen Delivery Room Air 04/09/24 04:00 04/09/24 06:00 04/09/24 08:00 Temperature 97.3 F L Pulse Rate 51 L 66 73 Respiratory Rate 20 Blood Pressure 103/64 Pulse Oximetry 99 Oxygen Delivery Intake/Output Intake/Output: Intake & Output 04/06/24 04/07/24 04/08/24 04/09/24 23:59 23:59 23:59 23:59 Intake Total 100 955.0 790 Balance 100 955.0 790 Meds/Results Medications: Active Medications Generic Name Dose Route Start Last Admin Trade Name Freq PRN Reason Stop Dose Admin Levetiracetam 750 mg/ Dextrose 107.5 mls @ 430 mls/hr 04/08/24 09:00 04/09/24 08:09 IVPB 430 mls/hr Q12HR ALEXA Administration Lorazepam 2 mg 04/08/24 07:52 Lorazepam Inj (*Crx) 2 Mg/Ml Vial IV PUSH Q2HR PRN seizure Pantoprazole Sodium 40 mg 04/08/24 09:00 04/09/24 08:10 Pantoprazole 40 Mg Tablet PO 40 mg QAM ALEXA Administration Radiology Results: ITS Impressions Head CT 04/07/24 14:55 IMPRESSION: No acute intracranial findings. Area of encephalomalacia in the right frontal lobe with adjacent calcification unchanged from previous examination. Chest X-Ray 04/07/24 15:58 IMPRESSION: No acute cardiopulmonary pathology. Brain MRI 04/08/24 11:31 IMPRESSION: 1. Curvilinear susceptibility artifact suggestive of sequela of chronic hemorrhage along the margins of a small region of encephalomalacia likely related to reported history of stroke 2 years prior. No acute intracranial process. Labs Labs: Laboratory Results - last 24 hr 04/08/24 04/09/24 04/09/24 16:56 01:30 05:39 WBC 7.0 RBC 4.37 L Hgb 13.7 L Hct 40.5 L MCV 92.7 MCH 31.4 MCHC 33.8 RDW 12.7 Plt Count 2
[2024-04-09 17:02] LABS: Glucose Point of Care 90 mg/dl (65-105)
--- NOTE | 2024-04-09 17:26 | WPDNEUROPN ---
Progress Note: A&P Assessment and Plan (1) Seizure: Code(s): R56.9 - Unspecified convulsions Status: Acute (2) History of hemorrhagic cerebrovascular accident (CVA) without residual deficits: Code(s): Z86.73 - Personal history of transient ischemic attack (TIA), and cerebral infarction without residual deficits Status: Acute (3) Alcohol abuse: Code(s): F10.10 - Alcohol abuse, uncomplicated Status: Acute Plan I would suggest increase the dose of Keppra to 750 mg twice a day and he should not operate heavy machinery or drive for 6 months. 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 He should because of the advised to dropped stop drinking and be followed up in Neurology with regard to seizure management. Help with results of the MRI of the brain. No new findings were noted however an area encephalomalacia was noted in the right frontal area with age is suggestive of possible hemorrhages. His history is indicative of the same. Subjective Date/time seen: 04/09/24 17:26 Interval history: Previous history and progress noted. Patient has a history of for old brain hemorrhage and seizure disorder. He has had seizures and has been started now on Keppra. He denies any side effect. He is currently on Keppra 1000 mg a day. Exam Narrative: Patient was fully conscious alert oriented to self time place and person and does not appear to be in distress. Objective Data Vital Signs Vital Signs: Vital Signs - 24 hr 04/08/24 22:00 04/08/24 20:00 04/08/24 20:00 Temperature 36.2 C L Pulse Rate 63 54 L Pulse Rate [Monitor] Respiratory Rate 20 Blood Pressure 118/59 L Pulse Oximetry 98 Oxygen Delivery Room Air 04/09/24 00:00 04/09/24 04:00 04/09/24 06:00 Temperature 36.3 C L Pulse Rate 64 51 L 66 Pulse Rate [Monitor] Respiratory Rate 20 Blood Pressure 103/64 Pulse Oximetry 99 Oxygen Delivery 04/09/24 08:00 04/09/24 12:00 04/09/24 13:33 Temperature Pulse Rate 73 50 L Pulse Rate [Monitor] 66 Respiratory Rate Blood Pressure Pulse Oximetry Oxygen Delivery 04/09/24 14:00 Temperature 35.9 C L Pulse Rate 68 Pulse Rate [Monitor] Respiratory Rate 18 Blood Pressure 113/69 Pulse Oximetry 100 Oxygen Delivery Intake/Output Intake/Output: Intake & Output 04/06/24 04/07/24 04/08/24 04/09/24 23:59 23:59 23:59 23:59 Intake Total 100 955.0 1137.5 Balance 100 955.0 1137.5 Meds/Results Medications: Active Medications Generic Name Dose Route Start Last Admin Trade Name Freq PRN Reason Stop Dose Admin Chlordiazepoxide HCl 25 mg 04/09/24 13:12 Chlordiazepoxide (*Crx) 25 Mg Capsule PO Q6H PRN Withdrawal CIWA >12 Levetiracetam 750 mg/ Dextrose 107.5 mls @ 430 mls/hr 04/08/24 09:00 04/09/24 08:24 IVPB Infused Q12HR ALEXA Infusion Lorazepam 2 mg 04/08/24 07:52 Lorazepam Inj (*Crx) 2 Mg/Ml Vial IV PUSH Q2HR PRN seizure Lorazepam 2 mg 04/09/24 13:12 Lorazepam Inj (*Crx) 2 Mg/Ml Vial IV PUSH Q2H PRN CIWA > 8-12 Pantoprazole Sodium 40 mg 04/08/24 09:00 04/09/24 08:10 Pantoprazole 40 Mg Tablet PO 40 mg QAM ALEXA Administration Thiamine HCl 100 mg 04/10/24 09:00 Thiamine Hcl 200 Mg/2 Ml Vial IV PUSH DAILY [facility] Radiology Results: ITS Impressions Head CT 04/07/24 14:55 IMPRESSION: No acute intracranial findings. Area of encephalomalacia in the right frontal lobe with adjacent calcification unchanged from previous examination. Chest X-Ray 04/07/24 15:58 IMPRESSION: No acute cardiopulmonary pathology. Brain MRI 04/08/24 11:31 IMPRESSION: 1. Curvilinear susceptibility artifact suggestive of sequela of chronic hemorrhage along the margins of a small region of encephalomalacia likely related to reported history of stroke 2 years prior. No acute intracrania
[2024-04-10] VITALS: PULSE 61
[2024-04-10 03:45] VITALS: PULSE 53
[2024-04-10 04:00] VITALS: PULSE 82
[2024-04-10 05:57] LABS: Hematocrit 41.4 % (42.0-52.0); Hemoglobin 14.2 g/dL (14.0-18.0); Mean Corpuscular HGB Conc 34.3 g/dl (32-36); Mean Corpuscular Hemoglobin 31.3 pg (26-34); Mean Corpuscular Volume 91.2 fl (80-100); Mean Platelet Volume 9.9 fl (7.4-10.4); Platelet Count Result 245 k/mm3 (150-375); Red Blood Count 4.54 M/mm3 (4.6-6.20); Red Cell Distribution Width 12.8 % (11.5-14.5); White Blood Count 6.3 K/mm3 (4.5-10.0)
[2024-04-10 06:00] VITALS: BP 106/58; PULSE 63; RESP 20; TEMP 36.2; O2SAT 98
[2024-04-10 06:19] LABS: Anion Gap 5 mmol/L (4-12); Blood Urea Nitrogen 15 mg/dL (9-20); Calcium 9.2 mg/dL (8.4-10.2); Carbon Dioxide 26 mmol/L (22-30); Chloride 108 mmol/L (98-107); Estimated CRCL calculation 94 ml/min; Estimated Glomerular Filt Rate > 60; Glucose 100 mg/dL (65-110); Potassium 3.9 mmol/L (3.4-5.0); Sodium 139 mmol/L (137-145)
[2024-04-10 08:00] VITALS: BP 106/58; PULSE 48; PULSE 53
[2024-04-10] MEDS: levETIRAcetam Tablet 250 MG, levETIRAcetam Tablet 500 MG 750 MG PO (08:19)
[2024-04-10] MEDS: PANTOPRAZOLE 40 MG TABLET PO (08:19)
[2024-04-10] MEDS: THIAMINE HCL 200 MG/2 ML VIAL 100 MG IV PUSH (08:19)
[2024-04-10 08:48] LABS: Glucose Point of Care 92 mg/dl (65-105)
--- NOTE | 2024-04-10 10:43 | WPDNEUROLOGY ---
Neurology EEG Report General Information Date of Study: 04/09/24 TEST eeg DIAGNOSIS Seizures CONDITION OF RECORDING awake drowsy and sleep EEG NUMBER [id number] CLINICAL HISTORY patient reports he was feeling fine when his left arm started shaking then went to whole body she and lost consciousness. History of previous stroke with seizures years ago. EEG DESCRIPTION Basic resting occipital frequency consists of low voltage 9 to 11 hertz per 2nd alpha admixed with low-voltage 15 to 18 hertz per 2nd beta. Alpha activity is symmetrical he blocked by opening the eyes. Low-voltage beta activity seen diffusely admixed with waxing and waning posterior alpha rhythm during drowsiness. Low-voltage beta activity seen admixed with low-voltage alpha and theta activity during early part of sleep were going into bilateral symmetrical sleep spindles. Hyperventilation not done. Photic stimulation not done. Non paroxysmal. Nonfocal. Nonlateralizing. IMPRESSION Normal for a course. Normal record does not rule out the possibility of seizures ,clinical correlation recommended.
--- NOTE | 2024-04-10 11:39 | PM.DS ---
DS: Admitting Diagnosis Discharge Date 04/10/24 Admitting Diagnosis Seizure DS: Discharge Diagnosis Discharge Diagnosis (1) Seizure: Code(s): R56.9 - Unspecified convulsions Status: Acute (2) Alcohol abuse: Code(s): F10.10 - Alcohol abuse, uncomplicated Status: Acute DS: Summary Hospital Course Hospital Course: This is a pleasant 33-year-old male with history of hemorrhagic stroke in August 2022 associated with seizure however he has not had any since that time who presented to the emergency department via EMS for evaluation of possible seizure. While getting ready for to go to a wedding he started to have tremors of his left hand which progressed up the left arm. He was aware of these tremors but was unable to control them. He then started to feel strange throughout his whole body and reportedly fell onto the ground with full body tremor. When he came to he was a bit confused but was awake and alert quite quickly. There were no reports of bowel or bladder incontinence. He did not sustain any injuries however he did bite his tongue. In the ED: Vital signs were stable on arrival. Labs were pretty unremarkable. Urine drug screen was positive for cannabis. Brain CT showed no acute findings but did note area of encephalomalacia in the right frontal lobe which is unchanged from previous exam. Chest x-ray was unremarkable. He was loaded with Keppra and he is being admitted in this setting for close monitoring and neurology consultation. Patient was started on Keppra 500 mg b.i.d. while in the hospital he got an MRI showing curvilinear susceptibility and infarct suggestive of sequela of chronic hemorrhage along the margins of small region of encephalomalacia likely related to reported history of stroke. Neurology recommended EEG. EEG was normal although this does not rule out possibility of seizures. Neurology also recommended increasing Keppra dose from 500 to 750 b.i.d.. Patient did not have any recurrent seizures while in the hospital. He is feeling back to himself and doing well. 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 Will follow up with Neurology as an outpatient. His labs and vital signs are stable and he is medically clear for discharge at this time. Time Spent with Patient Time attestation: Total time spent providing and/or coordinating discharge services: Exam Narrative: GENERAL: Comfortable, no acute distress HENMT: moist mucous membranes EYES: EOM intact b/l NECK: no lymphadenopathy RESPIRATORY: clear to auscultation, no increased respiratory effort CARDIO: Regular rate and rhythm GI: soft, nontender, bowel sounds present SKIN/EXTREMITIES: no rashes, no edema, no redness or tenderness NEURO: PROM intact, answers questions appropriately, A&O x4 DS: Data Data Completed and Pending Labs on day of discharge: Labs from last 24 hours 04/10/24 04/10/24 04/09/24 08:43 05:31 16:59 WBC 6.3 RBC 4.54 L Hgb 14.2 Hct 41.4 L MCV 91.2 MCH 31.3 MCHC 34.3 RDW 12.8 Plt Count 245 MPV 9.9 Sodium 139 Potassium 3.9 Chloride 108 H Carbon Dioxide 26 Anion Gap 5 BUN 15 Creatinine 0.90 Estim Creat Clear Calc 94 Estimated GFR > 60 Glucose 100 POC Capillary Glucose 92 90 Calcium 9.2 04/09/24 11:35 WBC RBC Hgb Hct MCV MCH MCHC RDW Plt Count MPV Sodium Potassium Chloride Carbon Dioxide Anion Gap BUN Creatinine Estim Creat Clear Calc Estimated GFR Glucose POC Capillary Glucose 91 Calcium Discharge Plan Discharge Consulting providers: Florence Purdy Discharging Clinician: Silvia Ambriz Patient Disposition: Home, Self-Care Activity: other - see discharge instructions Diet: regular Discharge Instructions: Medications: Keppra 750 mg twice a day. Activities: Avoid hazardous activities such as mild climbing o
== END 2024-04-10 13:36 | disposition home or self-care (01) ==
LOC: ANHED 15:03 → ANH3MED 20:24
PROVIDERS: Emergency Medicine; General Practice; Internal Medicine Critical Care Medicine; Physician Assistant; Admitting Provider Internal Medicine; Emergency Provider Physician Assistant; PCP Family Medicine Adolescent Medicine; Visit Provider Nurse Practitioner Family
DX: R56.9 Unspecified convulsions (principal); E16.2 Hypoglycemia, unspecified; F10.10 Alcohol abuse, uncomplicated; Z86.73 Personal history of transient ischemic attack (TIA), and cerebral infarction without residual deficits; F17.220 Nicotine dependence, chewing tobacco, uncomplicated; F41.8 Other specified anxiety disorders
CPT/HCPCS: 36415; 70450; 70553; 71046; 80048; 80053; 80307; 81001; 82948; 83735; 84484; 85025; 85027; 93005; 95816; 96374; 96376; 99285; A9270; A9577; G0378; J1953; J3411

== ENCOUNTER 2025-04-09 13:54 | Emergency (ER) | payer OTHER, SELFPAY ==
[2025-04-09 13:59] VITALS: BP 137/86; PULSE 92; RESP 16; TEMP 36.4; O2SAT 99
--- OUTSIDE RECORDS SUMMARY | 2025-04-09 14:43 | XMS_ITS | Clinical Summary ---
Author Organization [facility] Address [address] [place] [address] Care Team Providers Care Pathology Lab Technician Name Role Phone Unknown, Provider Primary Care Provider Unavaila ble Source Comments [facility],non-owned Affiliates and Associated Physician Practices is amultiple site organization consisting of ambulatory clinics and hospital sitesin [place], [place], [place] and [place]. This disclosure is being madepursuant to the Care Everywhere program and may not contain all information available regarding this patient. Last updated 18.[facility] Allergies No known active allergies Medications * Be aware that medications may not be up to date on this document. Alwaysverify current medications with the patient. 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 Cerebral edema 09/05/2022 Suicidal ideation 09/05/2022 Tension headache 09/05/2022 Alcohol use 09/05/2022 Nontraumatic intracerebral hemorrhage, unspecifi ed 09/05/2022 SAH (subarachnoid hemorrhage) 09/04/2022 Facial droop due to acute stroke 09/04/2022 Left-sided weakness 09/04/2022 Acute headache 09/04/2022 Methamphetamine abuse 09/04/2022 Immunizations Immunization Administration Dates Next Due Covid Pfizer primary monovalent 12+ yr 0.3mL Pur ple cap 09/08/2022 Social History Tobacco Use Types Packs/Day Years Used Date Smoking Tobacco: Never Smokeless Tobacco: Never Tobacco Cessation:Counseling Given: Not Answered Alcohol Use Standard Drinks/Week Comments Never 0 (1 standard drink = 0.6 oz pur e alcohol) AUDIT-C Answer Date Recorded Frequency of Alcohol Consumption Not on file 09/04/2022 Q2: How many drinks containi ng alcohol do you have on a typical day when you are drinking? Patient does not drink Frequency of Binge Drinking Not on file 08/24 Hunger Vital Sign Answer Date Recorded Within the past 12 months, y ou worried that your food would run out before you got the money to buy more. Never true 09/05/20 22 Within the past 12 months, t he food you bought just didn't last and you didn't have money to get more. Never true 09/05/2022 Sex and Gender Information Value Date Recorded Sex Assigned at Not on file Legal Sex Male 10:37 AM ONLINE CONTENT COORDINATOR Gender Identity Not on file Sexual Orientation Not on file Last Filed Vital Signs Vital Sign Reading Time Taken Comments Blood Pressure 108/77 12/08/2022 12:39 PM ONLINE CONTENT COORDINATOR Pulse 61 12/08/2022 12:39 PM ONLINE CONTENT COORDINATOR Temperature 36.7 C (98 F) 12/08/2022 12:39 PM ONLINE CONTENT COORDINATOR Respiratory Rate 16 12/08/2022 12:39 PM ONLINE CONTENT COORDINATOR Oxygen Saturation 98% 12/08/2022 12:39 PM ONLINE CONTENT COORDINATOR Inhaled Oxygen Concentration - - Weight 92 kg (202 lb 12.8 oz) 12/08/2022 12:39 P M ONLINE CONTENT COORDINATOR Height 175.3 cm (5' 9) 12/08/2022 12:39 PM ONLINE CONTENT COORDINATOR Body Mass Index 29.95 12/08/2022 12:39 PM ONLINE CONTENT COORDINATOR Plan of Treatment Health Maintenance Due Date Last Done Comments HIV SCREENING 2007 HEPATITIS C SCREENING 09/24/2010 DTAP/TDAP/TD VACCINES (1 - Tdap) 2011 HEPATITIS B VACCINE (1 of 3 - 19+ 3-dose series) 2011 COVID-19 VACCINE (2 - 2023-2 5 season) 2024 09/08/2022 DEPRESSION SCREENING 10/24/2024 INFLUENZA VACCINE (Season Ended) 2025 ZOSTER VACCINE (1 of 2) 2042 HIB VACCINE Aged Out No longer eligi ble based on patient's age to complete this topic HPV VACCINE Aged Out No longer eligi ble based on patient's age to complete this topic MENINGOCOCCAL (Group B) VACC INE SHARED DECISION-MAKING Aged Out No longer eligibl e based on patient's age to complete this topic MENINGOCOCCAL GROUPS A/C/Y/W VACCINE Aged Out No longer eligible b ased on patient's age to complete this topic PNEUMOCOCCAL VACCINE Aged Out No long er eligible based on patient's age to complete this topic Insurance MEDICAID [employer] [facility] [place] MEDICAID - OUT OF [facility] Advance Directives * Full Code (Latest Code Status on File) Date Activated Date Inactivated Comments 09/04/2022 10:21 PM 09/08/2022 7:25 PM Care Teams Pathology Lab Technician Relationship Specialty Start Date End Date Unknown, Provider PCP - General 09/25/22
--- OUTSIDE RECORDS SUMMARY | 2025-04-09 14:43 | XMS_ITS | Referral Summary ---
Author Organization [facility] Address [address] [place] [address] Care Team Providers Care Construction Representative Name Role Phone Bismark Moore MD Unavailable + Bismark Moore MD Primary Care Prov ider Allergies No known active allergies Medications ondansetron (ZOFRAN) 4 mg tablet Take 1 tablet (4 mg total) by mouth every 6 (six) hours. 12 tablet 10/26/19 18 Active Additional Information Patient not taking.Reported on 09/02/2021 diphenoxylate-atro pine (LOMOTIL) 2.5-0.025 mg per tabletIndications: diarrhea Take 1 tablet by mouth 4 (four) times a day as needed for diarrhea. 10 tablet 10/26/19 18 Active Additional Information Patient not taking.Reported on 09/02/2021 benzonatate (TESSALON) 100 mg capsuleIndications :Cough Take 1 capsule (100 mg total) by mouth every 8 (eight) hours 21 capsule 10/05/20 24 Active ondansetron ODT (ZOFRAN-ODT) 4 mg disintegrating tablet Take 1 tablet (4 mg total) by mouth every 8 (eight) hours as needed for nausea 20 tablet 10/05/20 24 Active Active Problems No known active problems Social History Tobacco Use Types Packs/Day Years Used Date Smoking Tobacco: Never Smokeless Tobacco: Never Alcohol Use Standard Drinks/Week Comments Yes 11 (1 standard drink = 0.6 oz pu re alcohol) daily Personal Safety Answer Date Recorded Have you ever been in or are you currently in a harmful physical or emotional relationship or is someone making you feel afraid or unsafe? Denies 10/05/2024 Sex and Gender Information Value Date Recorded Sex Assigned at Not on file Legal Sex Male 8:37 PM FIRE EXTINGUISHER CHARGER Gender Identity Not on file Sexual Orientation Not on file Last Filed Vital Signs Vital Sign Reading Time Taken Comments Blood Pressure 102/66 10/05/2024 10:00 PM FIRE EXTINGUISHER CHARGER Pulse 69 10/05/2024 10:00 PM FIRE EXTINGUISHER CHARGER Temperature 37 C (98.6 F) 10/05/2024 8:00 PM FIRE EXTINGUISHER CHARGER Respiratory Rate 18 10/05/2024 10:00 PM FIRE EXTINGUISHER CHARGER Oxygen Saturation 100% 10/05/2024 10:00 PM FIRE EXTINGUISHER CHARGER Inhaled Oxygen Concentration - - Weight 86.9 kg (191 lb 9.3 oz) 10/05/2024 5:05 P M FIRE EXTINGUISHER CHARGER Height 175.3 cm (5' 9) 10/05/2024 5:05 PM FIRE EXTINGUISHER CHARGER Body Mass Index 28.29 10/05/2024 5:05 PM FIRE EXTINGUISHER CHARGER Plan of Treatment Not on file Insurance [facility] CHOICE PLUS [facility] HMO/PPO Address: [address] [address] [place] [address] [facility] [address] [phone] Care Teams Construction Representative Relationship Specialty Start Date End Date Bismark Moore MD [address] [place] [address] PCP - General Family Medicine 10/05/24 Bismark Moore MD [address] [place] [address] 04/17/19
--- OUTSIDE RECORDS SUMMARY | 2025-04-09 14:43 | XMS_ITS | Clinical Summary ---
Author Organization [facility] Tarena LINDLEY Address [address] [place] [id number] Care Team Providers Care Recreation Attendant Name Role Phone Unavailable Primary Care Provider Unavailabl e Allergies No known active allergies Medications escitalopram oxalate (LEXAPRO) 10 mg tabletIndication s:Severe episode of recurrent major depressive disorder, without psychotic features (CMS/HCC),Genera lized anxiety disorder Take 1 Tablet (10 mg) by mouth daily. 30 Tablet 07/30/2021 Active Active Problems No known active problems Family History Medical History Relation Name Comments No Known Problems Daughter Diabetes Father Unknown Maternal Grandfather Unknown Maternal Grandmother Hypertension Mother Unknown Paternal Grandfather Unknown Paternal Grandmother No Known Problems Sister 1 No Known Problems Sister 2 No Known Problems Son Relation Name Status Comments Daughter Alive Father Alive Maternal Grandfather Maternal Grandmother Mother Alive Paternal Grandfather Paternal Grandmother Sister 1 Alive Sister 2 Alive Son Alive Social History Tobacco Use Types Packs/Day Years Used Date Smoking Tobacco: Never Smokeless Tobacco: Never Alcohol Use Standard Drinks/Week Comments Yes 0 (1 standard drink = 0.6 oz pur e alcohol) Sex and Gender Information Value Date Recorded Sex Assigned at Not on file Legal Sex Male 7:12 AM EXECUTIVE COMMUNITY PLANNING Gender Identity Not on file Sexual Orientation Not on file Last Filed Vital Signs Vital Sign Reading Time Taken Comments Blood Pressure 104/60 10/02/2021 10:48 AM EXECUTIVE COMMUNITY PLANNING Pulse 80 10/02/2021 10:48 AM EXECUTIVE COMMUNITY PLANNING Temperature 36.2 C (97.2 F) 10/02/2021 10:48 AM EXECUTIVE COMMUNITY PLANNING Respiratory Rate 16 10/02/2021 10:48 AM EXECUTIVE COMMUNITY PLANNING Oxygen Saturation 98% 10/02/2021 10:48 AM EXECUTIVE COMMUNITY PLANNING Inhaled Oxygen Concentration - - Weight 95.3 kg (210 lb) 10/02/2021 10:48 AM EXECUTIVE COMMUNITY PLANNING Height 175.3 cm (5' 9) 10/02/2021 10:48 AM EXECUTIVE COMMUNITY PLANNING Body Mass Index 31.01 10/02/2021 10:48 AM EXECUTIVE COMMUNITY PLANNING Plan of Treatment Health Maintenance Due Date Last Done Comments DTAP/TDAP/TD VACCINES (1 - Tdap) 2011 HEPATITIS B VACCINES (1 of 3 - 19+ 3-dose series) 2011 INFLUENZA VACCINE (#1) 2024 07/30/2021 HPV VACCINES Aged Out No longer eligi ble based on patient's age to complete this topic Insurance [facility] OPTIONS PPO [id number]
--- OUTSIDE RECORDS SUMMARY | 2025-04-09 14:43 | XMS_ITS | Clinical Summary ---
Author Organization [facility] Address [address] [place] [address] Care Team Providers Care Fraud Investigator Name Role Phone Bismark Moore MD Unavailable + Bismark Mooer MD Primary Care Prov ider Allergies No [...] Active Active Problems No known active problems Surgical History Surgery Date Site/Laterality Comments NO PAST SURGERIES Medical History Medical History Date Comments No pertinent past medical history Covid-19 Sx onset 05/25/22 Alcohol use ~ 11 drinks / da y (6 beers; 5 shorts (half a pint)) Marijuana use Covid-19 Sx onset 05/25/22 Social History Tobacco Use Types Packs/Day Years [...] on file Legal Sex Male 8:37 PM FISH AND WILDLIFE WARDEN Gender Identity Not on file Sexual Orientation Not on file Obstetrics History Last Filed Vital Signs Vital Sign Reading Time Taken Comments Blood Pressure 102/66 10/05/2024 10:00 PM FISH AND WILDLIFE WARDEN Pulse 69 10/05/2024 10:00 PM FISH AND WILDLIFE WARDEN Temperature 37 C (98.6 F) 10/05/2024 8:00 PM FISH AND WILDLIFE WARDEN Respiratory Rate 18 10/05/2024 10:00 PM FISH AND WILDLIFE WARDEN Oxygen Saturation 100% 10/05/2024 10:00 PM FISH AND WILDLIFE WARDEN Inhaled Oxygen Concentration - - Weight 86.9 kg (191 lb 9.3 oz) 10/05/2024 5:05 P M FISH AND WILDLIFE WARDEN Height 175.3 cm (5' 9) 10/05/2024 5:05 PM FISH AND WILDLIFE WARDEN Body Mass Index 28.29 10/05/2024 5:05 PM FISH AND WILDLIFE WARDEN Plan of Treatment Health Maintenance Due Date Last Done Comments Depression Screening 1992 Hepatitis C Screening 1992 DTaP/Tdap/Td Vaccine (1 - Tdap) 2003 Varicella Vaccines (1 of 2 - 13+ 2-dose series) 2005 Hepatitis B Screening 2010 Regular Well Visit/Exam 18-64 2010 Covid-19 Vaccine (4 - 2023-2 5 season) 2024 09/08/2022, 04/03/2021, 03/13/2021 Influenza Vaccine (Season Ended) 2025 HPV Vaccines Aged Out No longer eligi ble based on patient's age to complete this topic Pneumococcal vaccine <65 Aged Out No longer eligible based on patient's age to complete this topic [place] [address] [facility] CHOICE PLUS [facility] HMO/PPO Address: [address] [address] [place] [address] [facility] Care Teams Fraud Investigator Relationship Specialty Start Date End Date Bismark Moore MD [address] [place] [address] PCP - General Family Medicine 10/05/24 Bismark Moore MD [address] [place] [address] 04/17/19
--- OUTSIDE RECORDS SUMMARY | 2025-04-09 14:43 | XMS_ITS | Clinical Summary ---
Author Organization [facility] Care Team Providers Care Online Affiliate Marketing Manager Name Role Phone Unavailable Primary Care Provider Unavailabl e Social History Tobacco Use Types Packs/Day Years Used Date Smoking Tobacco: Never Assessed Sex and Gender Information Value Date Recorded Sex Assigned at Not on file Legal Sex Male 9:39 PM CDT Gender Identity Not on file Sexual Orientation Not on file Plan of Treatment Health Maintenance Due Date Last Done Comments Hepatitis C Virus (HCV) Screening 1992 TdaP Immunization 1992 Hepatitis B Immunization (1 of 3 - 19+ 3-dose series) 2011 Influenza Immunization (#1) 2024 SARS-COV-2 Immunization (3 - 2023- season) 2024 04/03/2021, 03/13/2021 Respiratory Syncytial Virus (RSV) Immunization (Adult) (1 - 1-dose 75+ series) 2067 Meningococcal Immunization (ACWY) Aged Out No longer eligible b ased on patient's age to complete this topic Pneumococcal Immunization Combined Aged Out No longer eligible b ased on patient's age to complete this topic Rotavirus Immunization Aged Out No lo nger eligible based on patient's age to complete this topic
--- OUTSIDE RECORDS SUMMARY | 2025-04-09 14:43 | XMS_ITS | Encounter Summary ---
Author Organization [facility] Address [address] [place] [address] Care Team Providers Care Asphalt Heater Tender Name Role Phone Unavailable Primary Care Provider Unavailabl e Encounter Details Date Type Department Care Team (Latest Contact Info) Description 09/08/2022 3:17 PM NATURAL GAS PLANT TECHNICIAN Hospital Encounter [address] [address] Stacia Fu MD [employer] Social History Tobacco Use Types Packs/Day Years Used Date Smoking Tobacco: Never Smokeless Tobacco: Never Alcohol Use Standard Drinks/Week Comments Never 0 [...] on file Legal Sex Male 10:37 AM NATURAL GAS PLANT TECHNICIAN Gender Identity Not on file Sexual Orientation Not on file COVID-19 Exposure Response Date Recorded In the last 10 days, have yo u been in contact with someone who was confirmed or suspected to have Coronavirus/COVID-19? No / Unsure 12/13/2022 11:14 AM NATURAL GAS PLANT TECHNICIAN documented as of this encounter Functional Status * Is person deaf or have serious hearing difficulty? Answer Date of Assessment Author No 09/05/2022 1:15 AM Bernabe Callahan RN * Is person blind or have serious difficulty seeing? Answer Date of Assessment Author No 09/05/2022 1:15 AM Bernabe Callahan RN * Does person have serious difficulty walking/climbing stairs? Answer Date of Assessment Author No 09/05/2022 1:15 AM Bernabe Callahan RN * Does person have difficulty dressing/bathing? Answer Date of Assessment Author No 09/05/2022 1:15 AM Bernabe Callahan RN * Does person have difficulty doing errands alone? Answer Date of Assessment Author No 09/05/2022 1:15 AM Bernabe Callahan RN documented as of this encounter Mental Status * Does person have difficulty concentrating/remembering/making decisions? Answer Entry Date Author No 09/05/2022 1:15 AM Bernabe Callahan RN documented in this encounter Plan of Treatment Not on file documented as of this encounter Visit Diagnoses Not on filedocumented in this encounter
[2025-04-09 15:00] VITALS: BP 125/82; PULSE 71; RESP 15; O2SAT 99
--- NOTE | 2025-04-09 15:36 | ED_ITS ---
HPI - General Adult General Chief complaint: Environmental Exposure Stated complaint: hazardous spill Time Seen by Provider: 04/09/25 15:24 Source: patient Mode of arrival: ambulatory Limitations: no limitations History of Present Illness HPI narrative: 34-year-old otherwise healthy here with a complaint of chemical exposure while in with a work. Patient states that some kind of liquid fell on his right forearm and the right side cultures have been few hours ago. Patient states that he washed it was also after the incident. He presently has no skin irritation or redness denies any shortness of breath. Onset (ago): hour(s) (2) Location: upper extremity (Right) Severity: mild Relieving factors: none Exacerbating factors: none Associated symptoms: denies other symptoms Related Data Allergies Allergy/AdvReac Type Severity Reaction Status Date / Time No Known Allergies Allergy Verified 04/09/25 13:55 Review of Systems Review of Systems: All systems reviewed & are unremarkable except as noted in HPI and below Constitutional: Constitutional: Reports no additional constitutional complaints Eyes: Eyes: Reports no additional eye complaints ENT: Reports system reviewed and no additional complaints, except as documented Cardiovascular: Cardiovascular: Reports no additional cardiovascular complaints Respiratory: Respiratory: Reports no additional respiratory complaints Gastrointestinal: Gastrointestinal: Reports no additional gastrointestinal complaints Musculoskeletal: Musculoskeletal: Reports no additional musculoskeletal complaints [facility] Past Medical History Medical History Suicide attempt (2021) Depression with anxiety History of hemorrhagic cerebrovascular accident (CVA) without residual deficits (08/2022) Patient has seizure at that time. Surgical History Surgical History No history of previous surgery Social History Social History Social History: Surrogate medical decision maker: Gladys Valentin, mother. Code status: Full code. 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 Last use: 02/11/2024 Do You Feel Safe in your Home?: Yes Lack of Transportation: No Lack of Food: Never True Current Housing: I Have Housing Concerned About Future Housing: No Difficulty Paying Gas/Electric Bills: No Difficulty Paying for Meds: No Currently Unemployed: No Education: High School Diploma/GED Difficulty w/ Childcare or Family Care: No Living arrangements: with family Spiritual care concerns: No Exam 2 Narrative: GENERAL: Well-appearing, well-nourished, and in no acute distress. HEAD: Normocephalic, atraumatic. EYES: PERRLA and EOMI. ENT: Nares clear, no rhinorrhea or epistaxis. Mucous membranes moist. NECK: Supple. CHEST: Clear to auscultation. No respiratory distress. HEART: Regular rate and rhythm. No murmur heard. Normal peripheral pulses. ABDOMEN: Soft, nontender, nondistended, normal active bowel sounds. EXTREMITIES: Normal range of motion. No edema. SKIN: Warm, dry, no rash. I do not see any erythema or well rash on skin induration NEURO: No focal deficits. Alert and oriented x3. PSYCH: Normal mood and affect. Course Vital Signs Vital signs: Vital Signs Temperature 36.4 C 04/09/25 13:59 Pulse Rate 92 04/09/25 13:59 Respiratory Rate 16 04/09/25 13:59 Blood Pressure 137/86 04/09/25 13:59 Pulse Oximetry 99 04/09/25 13:59 Oxygen Delivery Room Air 04/09/25 13:59 Temperature 36.4 C 04/09/25 13:59 Pulse Rate 71 04/09/25 15:00 Respiratory Rate 15 04/09/25 15:00 Blood Pressure 125/82 04/09/25 15:00 Pulse Oximetry 99 04/09/25 15:00 Oxygen Delivery Room Air 04/09/25 13:59 Medical Decision Making Vital Signs Vital Signs: Vital Signs Temperature 36.4 C 04/09/25 13:59 Pulse Rate 92 04/09/25 13:59 Respiratory Rate 16 04/09/25 13:59 Blood Pressure 137/86 04/09/25 13:59 Pulse Oximetry 99 04/09/25 13:59 Oxygen Delivery Room Air 04/09/25 13:59 Temperature 36.4 C 04/09/25 13:59 Pulse Rate 71 04/09/25 15:00 Respiratory Rate 15 04/09/25 15:00 Blood Pressure 125/82 04/09/25 15:00 Pulse Oximetry 99 04/09/25 15:00 Oxygen Delivery Room Air 04/09/25 13:59 Discharge Plan Discharge Clinical Impression: Chemical exposure Patient Disposition: Home Condition: Stable Instructions: Contact Dermatitis (DC) Patient Language: Bots[place] Prescriptions: No Action hyoscyamine sulfate 0.125 mg tablet,disintegrating 0.125 mg PO QID Qty: 30 0RF trazodone 150 mg tablet 150 mg PO QHS Qty: 30 5RF levetiracetam 750 mg tablet 750 mg PO Q12HR Qty: 180 1RF Follow-up/Referrals: Bismark Moore MD [Primary Care Provider] - Time of Disposition: 15:44
--- OUTSIDE RECORDS SUMMARY | 2025-04-09 16:48 | XMS_ITS | Referral Summary ---
Author Organization [facility] Address [address] [place] [address] Care Team Providers Care Political Science Chair Name Role Phone Bismark Moore MD Unavailable [...] on file Legal Sex Male 8:37 PM FOUNTAIN SERVER Gender Identity Not on file Sexual Orientation Not on file Last Filed Vital Signs Vital Sign Reading Time Taken Comments Blood Pressure 102/66 10/05/2024 10:00 PM FOUNTAIN SERVER Pulse 69 10/05/2024 10:00 PM FOUNTAIN SERVER Temperature 37 C (98.6 F) 10/05/2024 8:00 PM FOUNTAIN SERVER Respiratory Rate 18 10/05/2024 10:00 PM FOUNTAIN SERVER Oxygen Saturation 100% 10/05/2024 10:00 PM FOUNTAIN SERVER Inhaled Oxygen Concentration - - Weight 86.9 kg (191 lb 9.3 oz) 10/05/2024 5:05 P M FOUNTAIN SERVER Height 175.3 cm (5' 9) 10/05/2024 5:05 PM FOUNTAIN SERVER Body Mass Index 28.29 10/05/2024 5:05 PM FOUNTAIN SERVER Plan of Treatment Not on file Insurance [facility] [address] [id number] Care Teams Political Science Chair Relationship Specialty Start Date End Date Bismark Moore MD [address] [place] [address] PCP - General Family Medicine 10/05/24 Bismark Moore MD [address] [place] [address] 04/17/19
--- OUTSIDE RECORDS SUMMARY | 2025-04-09 16:48 | XMS_ITS | Clinical Summary ---
Author Organization [facility] Care Team Providers Care Shoe Cutter Name Role Phone Unavailable Primary Care Provider [...]
--- OUTSIDE RECORDS SUMMARY | 2025-04-09 16:48 | XMS_ITS | Encounter Summary ---
Author Organization [facility] Address [address] [place] [address] Care Team Providers Care Engineer Soils Name Role Phone Unavailable Primary Care Provider Unavailabl e Encounter Details Date Type Department Care Team (Latest Contact Info) Description 09/08/2022 3:17 PM COUNSELING CENTER DIRECTOR Hospital Encounter [address] [address] Stacia Fu MD [facility] [...] on file Legal Sex Male 10:37 AM COUNSELING CENTER DIRECTOR Gender Identity Not on file Sexual Orientation Not on file COVID-19 Exposure Response Date Recorded In the last 10 days, have yo u been in contact with someone who was confirmed or suspected to have Coronavirus/COVID-19? No / Unsure 12/13/2022 11:14 AM COUNSELING CENTER DIRECTOR documented as of this encounter Functional Status [...]
--- OUTSIDE RECORDS SUMMARY | 2025-04-09 16:48 | XMS_ITS | Clinical Summary ---
Author Organization [facility] Address [address] [place] [address] Care Team Providers Care Maintenance Data Analyst Name Role Phone Bismark Moore MD Unavailable [...] on file Legal Sex Male 8:37 PM FIBER LOCKING SUPERVISOR Gender Identity Not on file Sexual Orientation Not on file Obstetrics History Last Filed Vital Signs Vital Sign Reading Time Taken Comments Blood Pressure 102/66 10/05/2024 10:00 PM FIBER LOCKING SUPERVISOR Pulse 69 10/05/2024 10:00 PM FIBER LOCKING SUPERVISOR Temperature 37 C (98.6 F) 10/05/2024 8:00 PM FIBER LOCKING SUPERVISOR Respiratory Rate 18 10/05/2024 10:00 PM FIBER LOCKING SUPERVISOR Oxygen Saturation 100% 10/05/2024 10:00 PM FIBER LOCKING SUPERVISOR Inhaled Oxygen Concentration - - Weight 86.9 kg (191 lb 9.3 oz) 10/05/2024 5:05 P M FIBER LOCKING SUPERVISOR Height 175.3 cm (5' 9) 10/05/2024 5:05 PM FIBER LOCKING SUPERVISOR Body Mass Index 28.29 10/05/2024 5:05 PM FIBER LOCKING SUPERVISOR Plan of Treatment Health Maintenance Due Date [...] age to complete [place] [address] [facility]PPO Address: [address] [address] [place] [address] [facility] Care Teams Maintenance Data Analyst Relationship Specialty Start Date End Date Bismark Moore MD [address] [place] [address] PCP - General Family Medicine 10/05/24 Bismark Moore MD [address] [place] [address] 04/17/19
--- OUTSIDE RECORDS SUMMARY | 2025-04-09 16:48 | XMS_ITS | Clinical Summary ---
Author Organization [facility] Address [address] [place] [address] Care Team Providers Care Sales Team Recruiter Name Role Phone Unknown, Provider Primary Care Provider Unavaila ble Source Comments [facility],non-owned Affiliates and Associated Physician Practices is amultiple site organization consisting of ambulatory clinics and hospital sitesin [place], [place], [place] and [place]. This disclosure is being madepursuant to the Care Everywhere program and may not contain all information available regarding this patient. Last updated 18.[facility] Allergies No known active allergies Medications * [...] on file Legal Sex Male 10:37 AM OPTIMIZATION ENGINEER Gender Identity Not on file Sexual Orientation Not on file Last Filed Vital Signs Vital Sign Reading Time Taken Comments Blood Pressure 108/77 12/08/2022 12:39 PM OPTIMIZATION ENGINEER Pulse 61 12/08/2022 12:39 PM OPTIMIZATION ENGINEER Temperature 36.7 C (98 F) 12/08/2022 12:39 PM OPTIMIZATION ENGINEER Respiratory Rate 16 12/08/2022 12:39 PM OPTIMIZATION ENGINEER Oxygen Saturation 98% 12/08/2022 12:39 PM OPTIMIZATION ENGINEER Inhaled Oxygen Concentration - - Weight 92 kg (202 lb 12.8 oz) 12/08/2022 12:39 P M OPTIMIZATION ENGINEER Height 175.3 cm (5' 9) 12/08/2022 12:39 PM OPTIMIZATION ENGINEER Body Mass Index 29.95 12/08/2022 12:39 PM OPTIMIZATION ENGINEER Plan of Treatment Health Maintenance Due Date [...] [facility] [place] - [facility] OF [facility] Advance Directives * Full Code (Latest Code Status on File) Date Activated Date Inactivated Comments 09/04/2022 10:21 PM 09/08/2022 7:25 PM Care Teams Sales Team Recruiter Relationship Specialty Start Date End Date Unknown, Provider PCP - General 09/25/22
--- OUTSIDE RECORDS SUMMARY | 2025-04-09 16:48 | XMS_ITS | Clinical Summary ---
Author Organization [facility] [place] Address [address] [place] [id number] Care Team Providers Care It Consulting Manager Name Role Phone Unavailable Primary Care [...] on file Legal Sex Male 7:12 AM UNDERLINER Gender Identity Not on file Sexual Orientation Not on file Last Filed Vital Signs Vital Sign Reading Time Taken Comments Blood Pressure 104/60 10/02/2021 10:48 AM UNDERLINER Pulse 80 10/02/2021 10:48 AM UNDERLINER Temperature 36.2 C (97.2 F) 10/02/2021 10:48 AM UNDERLINER Respiratory Rate 16 10/02/2021 10:48 AM UNDERLINER Oxygen Saturation 98% 10/02/2021 10:48 AM UNDERLINER Inhaled Oxygen Concentration - - Weight 95.3 kg (210 lb) 10/02/2021 10:48 AM UNDERLINER Height 175.3 cm (5' 9) 10/02/2021 10:48 AM UNDERLINER Body Mass Index 31.01 10/02/2021 10:48 AM UNDERLINER Plan of Treatment Health Maintenance Due Date Last Done Comments DTAP/TDAP/TD VACCINES (1 - Tdap) 2011 HEPATITIS B VACCINES (1 of 3 - 19+ 3-dose series) 2011 INFLUENZA VACCINE (#1) 2024 07/30/2021 HPV VACCINES Aged Out No longer eligi ble based on patient's age to complete this topic Insurance [facility] [employer] PPO [id number] [place] [address]
== END 2025-04-09 16:32 | disposition home or self-care (01) ==
LOC: ANHED 16:15
PROVIDERS: Emergency Provider Family Medicine; PCP Family Medicine Adolescent Medicine
DX: Z77.098 Contact with and (suspected) exposure to other hazardous, chiefly nonmedicinal, chemicals (principal); F41.8 Other specified anxiety disorders; F17.220 Nicotine dependence, chewing tobacco, uncomplicated; Z79.899 Other long term (current) drug therapy
CPT/HCPCS: 99281